=== PATIENT | male | born 1980 | race African-American/Black ===

== ENCOUNTER 2019-02-25 19:46 | Emergency (ER) | payer OTHER ==
[~2019-02-25] VITALS: Ht 182.9 cm; Wt 90.7 kg
[2019-02-25 21:00] VITALS: BP 150/90
--- NOTE | 2019-02-25 21:02 | NUR ---
to lobby a/w bed ambulatory
--- NOTE | 2019-02-25 21:28 | NUR ---
38/M C/O R JAW/R FACE PAIN, STARTED 2.5 HRS AGO WHILE TALKING TO SOMEONE. NO FACIAL DROOP, SYMMETRICAL SMILE. DENIES COUGH/FEVER. PT ALSO REPORTS DIFFUSE ABD PAIN X1 WEEK. REPORTS INTERMITTENT EPISODE OF VOMITING, DENIES DIARRHEA/CONSTIPATION. PT AWAKE AND ALERT, AMBULATORY, PERRLA 3MM, GCS 15, SPEECH CLEAR, RR EVEN AND UNLABORED. DENIES MED HX OR RX. OTC TYLENOL 2 HRS AGO WITHOUT RELIEF.
[2019-02-25 22:02] VITALS: BP 148/108
--- NOTE | 2019-02-25 22:02 | NUR ---
Patient discharged with v/s stable. Written and verbal after care instructions given and explained. Patient alert, oriented and verbalized understanding of instructions. Ambulatory with steady gait. All questions addressed prior to discharge. ID band removed. Patient advised to follow up with PMD. Rx of PREDNISONE, CARBEMAZEPINE, IBUPROFEN given. Patient educated on indication of medication including possible reaction and side effects. Opportunity to ask questions provided and answered.
== END 2019-02-25 22:02 | disposition home or self-care (01) ==
LOC: MED 19:46
DX: G50.0 Trigeminal neuralgia (principal)
CPT/HCPCS: 99283

== ENCOUNTER 2022-06-09 23:55 | Emergency (ER) | payer MEDICAID ==
[~2022-06-09] VITALS: Ht 180.3 cm; Wt 90.7 kg
--- NOTE | 2022-06-09 23:57 | NUR ---
PT BIBA [facility] BED 6, ACCOMPANIED BY [place] PD Addendum: 06/09/22 at 5418 by [facility] PT BIBA [facility] ER BED 6, ACCOMPANIED WITH [facility]
[2022-06-09 23:58] VITALS: BP 200/103
[2022-06-10] MEDS ORDERED: TETRACAINE HCL/PF 0.5% OPTH 4 ML BTL OP ONE (00:10)
[2022-06-10 00:21] VITALS: BP 187/115
--- NOTE | 2022-06-10 00:21 | NUR ---
D/C BY , IN CUSTODY OF [facility] [place].
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
[2022-06-10] MEDS ORDERED: FLUORESCEIN OPTH STRIP 1 MG ONE (00:34)
== END 2022-06-10 00:21 ==
LOC: MED 23:55
DX: S05.01XA Injury of conjunctiva and corneal abrasion without foreign body, right eye, initial encounter (principal); Z02.89 Encounter for other administrative examinations; I10 Essential (primary) hypertension; X58.XXXA Exposure to other specified factors, initial encounter; Y92.89 Other specified places as the place of occurrence of the external cause; Y93.89 Activity, other specified; Y99.8 Other external cause status
CPT/HCPCS: 99283